=== PATIENT | male | born 1960 | race Asian ===

== ENCOUNTER 2023-10-25 16:45 | Emergency (ER) | payer BC, OTHER ==
[2023-10-25 16:58] VITALS: BMI 27.3
[2023-10-25 18:06] LABS: BASO % 1.1 % (0-2.0); EOS % 2.3 % (0-4.5); HEMATOCRIT 38.8 % (35.4-49); HEMOGLOBIN 13.1 GM/dL (11.7-16.9); MCH 28.2 pg (25.7-33.7); MCHC 33.8 g/dl (32.0-35.9); MEAN CELL VOLUME 83.5 fl (80-96); MEAN PLT VOLUME 8.3 fl (7.5-11.1); MONO % 9.4 % (3.8-10.2); NEUT % 55.2 % (42.8-82.8); PLATELET COUNT 217 10^3/uL (134-434); RBC 4.65 M/mm3 (4.00-5.60); WHITE BLOOD COUNT 5.5 K/mm3 (4.0-10.0)
[2023-10-25 18:12] LABS: CALCIUM 9.3 mg/dL (8.5-10.1)
[2023-10-25 18:13] LABS: ALBUMIN 4.2 g/dl (3.4-5.0); BLOOD UREA NITROGEN 17.3 mg/dL (7-18); MAGNESIUM 1.8 mg/dL (1.8-2.4)
[2023-10-25 18:14] LABS: INR 0.96 (0.83-1.09); PROTHROMBIN TIME (PATIENT) 11.1 SEC (9.7-13.0)
[2023-10-25 18:16] LABS: CREATININE 1.4 mg/dL (0.55-1.3)
[2023-10-25 18:17] LABS: ACTIVATED PTT 31.7 SECONDS (25.2-36.5); BILIRUBIN,TOTAL 0.6 mg/dL (0.2-1)
[2023-10-25 18:18] LABS: TOT PROT 7.4 g/dl (6.4-8.2)
[2023-10-25 19:02] VITALS: RESP 19; TEMP 98.1
[2023-10-25 20:21] VITALS: BP 158/81; PULSE 76
== END 2023-10-25 20:40 | disposition left against medical advice (07) ==
LOC: JER 16:45
DX: R07.89 Other chest pain (principal); R61 Generalized hyperhidrosis; Z20.822 Contact with and (suspected) exposure to COVID-19
CPT/HCPCS: 0241U-QW; 36415; 71045-TC-FY; 80053; 83735; 84484; 85025; 85379; 85610; 85730; 93005; 93010; 99284-25